=== PATIENT | female | born 1970 | race Two or more races ===

== ENCOUNTER 2017-11-09 09:57 | Outpatient (CLI) | payer OTHER | END 2017-11-09 10:08 | disposition home or self-care (01) | LOC: MAMO-SONO 09:57 | DX: Z12.31 Encounter for screening mammogram for malignant neoplasm of breast (principal); N60.11 Diffuse cystic mastopathy of right breast; N60.12 Diffuse cystic mastopathy of left breast ==

== ENCOUNTER 2019-11-24 09:05 | Outpatient (CLI) | payer OTHER | END 2019-11-24 09:13 | disposition home or self-care (01) | LOC: MAMO-SONO 09:05 | PROVIDERS: ATTEND Specialist | DX: Z12.31 Encounter for screening mammogram for malignant neoplasm of breast (principal); N60.11 Diffuse cystic mastopathy of right breast; N60.12 Diffuse cystic mastopathy of left breast ==

== ENCOUNTER 2019-12-02 08:26 | Outpatient (CLI) | payer OTHER | END 2019-12-02 08:37 | disposition home or self-care (01) | LOC: SONOGRAMA 08:26 → MAMO-SONO 09:15 | PROVIDERS: ATTEND Obstetrics & Gynecology | DX: R10.2 Pelvic and perineal pain (principal) ==

== ENCOUNTER 2020-12-06 08:34 | Outpatient (CLI) | payer OTHER | END 2020-12-06 08:48 | disposition home or self-care (01) | LOC: SONOGRAMA 08:34 | PROVIDERS: ATTEND Radiology Nuclear Radiology | DX: D25.1 Intramural leiomyoma of uterus (principal) ==